=== PATIENT | male | born 1955 | race Caucasian/White ===

== ENCOUNTER 2021-09-12 20:57 | Emergency (ER) | payer OTHER ==
[~2021-09-12] VITALS: Ht 188 cm; Wt 103.4 kg
--- NOTE | 2021-09-12 21:09 | NUR ---
PATIENT [id number] FROM HOME C/O WITNESSED SYNOCPAL EPISODE. PATIENT HAS A RIGHT ELBOW HEMATOMA, AND DENIES HAVING ANY HEAD TRUAMA. PATIENT TOOK CIALIS AND DRANK WINE AT 1700. ALERT AND OREINTED X4. AMBULATORY WITH NON LABORED BREATHING.
[2021-09-12] MEDS ORDERED: LISI20TA30 PO (22:09)
[2021-09-12] MEDS ORDERED: ROSU40TA23 PO (22:09)
[2021-09-12] MEDS ORDERED: METF500S7 PO (22:14)
[2021-09-12] MEDS ORDERED: LANS30CA56 PO ×2 (22:14)
[2021-09-12] MEDS ORDERED: EMPA10TA PO (22:14)
[2021-09-12] MEDS ORDERED: INSU100V37 SQ (22:14)
[2021-09-12] MEDS ORDERED: ASPI-1169 PO (22:14)
[2021-09-12] MEDS ORDERED: FENO135C4 PO (22:14)
--- NOTE | 2021-09-12 22:14 | NUR ---
bag tester @ bedside
[2021-09-12 22:19] LABS: BASOPHILS % (AUTO) 0.2 % (0.0-2.0); EOSINOPHILS % (AUTO) 0.2 % (0.0-6.0); HEMATOCRIT 44 % (39-51); HEMOGLOBIN 14.4 g/dL (13.5-17.5); LYMPHOCYTES # (AUTO) 1.6 K/uL (0.8-4.8); LYMPHOCYTES % (AUTO) 17.6 % (20.0-44.0); MEAN CORPUSCULAR HGB CONC 33 g/dl (31.0-36.0); MEAN CORPUSCULAR VOLUME 91 fL (80-96); MONOCYTES # (AUTO) 0.9 K/uL (0.1-1.30); MONOCYTES % (AUTO) 9.9 % (2.0-12.0); NEUTROPHILS # (AUTO) 6.6 K/uL (1.8-8.9); NEUTROPHILS % (AUTO) 72.1 % (43.0-81.0); PLATELET COUNT (AUTO) 261 K/uL (150-450); RED BLOOD CELL COUNT(AUTO) 4.83 MIL/uL (4.5-6.0); WHITE BLOOD COUNT (AUTO) 9.2 K/uL (4.3-11.0)
[2021-09-12 22:29] LABS: CALCIUM, SERUM 9.3 mg/dL (8.5-10.1); CARBON DIOXIDE 21 mmol/L (21-32); CHLORIDE 104 mmol/L (98-107); CREATININE 1.2 mg/dL (0.6-1.3); GLUCOSE 138 mg/dL (74-106); POTASSIUM 3.7 mmol/L (3.5-5.1); SODIUM SERUM 141 mmol/L (136-145); UREA NITROGEN, BLOOD 25 mg/dL (7-18)
[2021-09-12 22:35] LABS: ALANINE AMINOTRANSFERASE 57 U/L (12-78); ALBUMIN 3.9 g/dL (3.4-5.0); ALKALINE PHOSPHATASE 79 U/L (46-116); ASPARTATE AMINOTRANSFERASE 34 U/L (15-37); BILIRUBIN,DIRECT 0.1 mg/dL (0.0-0.2); BILIRUBIN,TOTAL 0.3 mg/dL (0.2-1.0); TOTAL PROTEIN, SERUM 6.9 g/dL (6.4-8.2)
--- NOTE | 2021-09-12 22:52 | NUR ---
Patient discharged to home in stable condition. Written and verbal after care instructions given. Patient verbalizes understanding of instruction.
[2021-09-12 22:53] VITALS: BP 125/77
== END 2021-09-12 22:53 | disposition home or self-care (01) ==
LOC: ER 21:06
DX: R55 Syncope and collapse (principal); R07.89 Other chest pain; I10 Essential (primary) hypertension; E11.9 Type 2 diabetes mellitus without complications; Z60.2 Problems related to living alone; Z79.82 Long term (current) use of aspirin; Z79.899 Other long term (current) drug therapy
CPT/HCPCS: 36415; 71045-TC; 80048-TC; 80076-TC; 84484-TC; 85025-TC